=== PATIENT | male | born 1950 | race Caucasian/White ===

== ENCOUNTER 2017-08-04 22:04 | Inpatient (IN) | payer MEDICARE ==
[~2017-08-04] VITALS: Ht 167.6 cm; Wt 56.7 kg
[2017-08-04 22:37] LABS: BASOPHILS 0.2 % (0-2); EOSINOPHILS 0.2 % (0-7); HEMATOCRIT 42.1 % (42.0-54.0); HEMOGLOBIN 14.2 g/dL (13.5-17.5); IMMATURE GRANULOCYTES 0.2 % (0-5); LYMPHOCYTES 13.7 % (15-50); MCH 33.3 pg (26.0-34.0); MCHC 33.7 g/dL (31.0-37.0); MCV 98.8 fL (80.0-100.0); MEAN PLATELET VOLUME 9.5 fL (7.4-10.4); MONOCYTES 9.2 % (2-11); NEUTROPHILS 76.5 % (40-80); PLATELET COUNT 188 10x3/uL (130-400); RBC 4.26 10x6/uL (4.20-6.10); RDW 12.6 % (11.5-14.5); WBC 11.3 10x3/uL (4.8-10.8)
[2017-08-04 22:50] LABS: ALBUMIN 3.7 g/dL (3.4-5.0); ALKALINE PHOSPHATASE 72 U/L (46-116); ALT (SGPT) 27 U/L (10-68); BILIRUBIN - TOTAL 0.27 mg/dL (0.2-1.3); CALC OSMOLALITY 277 mosm/kg (275-300); CALCIUM 8.5 mg/dL (8.5-10.1); CARBON DIOXIDE 31.5 mmol/L (21.0-32.0); CHLORIDE - SERUM 101 mmol/L (98-107); CREATININE - SERUM 0.8 mg/dL (0.6-1.3); GLUCOSE 106 mg/dL (74-106); POTASSIUM - SERUM 3.5 mmol/L (3.5-5.1); PROTEIN - SERUM 6.8 g/dL (6.4-8.2); SODIUM 141 mmol/L (136-145); UREA NITROGEN 5 mg/dL (7-18); eGFR NON AFRICAN AMERICAN > 90 mL/min (90-120)
[2017-08-04 22:53] LABS: APTT 27.6 SECONDS (22.8-39.4); INR 0.93 (0.85-1.17); PROTIME 12.3 SECONDS (11.6-15.0)
[2017-08-04 22:58] LABS: CREATINE KINASE 102 UL (21-232); PRO BNP 201 pg/mL (0-125)
[2017-08-05 03:08] VITALS: BP 124/92; BMI 20.2
[2017-08-05 07:57] VITALS: BP 127/70
[2017-08-05] MEDS ORDERED: RAPAFLO8 MG PO (10:44)
[2017-08-05] MEDS ORDERED: PROTONIX40 MG PO (11:12)
[2017-08-05] MEDS ORDERED: TIMOPTIC 0.5 % O5 ML EACH EYE (11:13)
[2017-08-05] MEDS ORDERED: PRINIVIL20 MG PO (11:14)
[2017-08-05] MEDS ORDERED: SYNTHROID88 MCG PO (11:14)
[2017-08-05] MEDS ORDERED: calcium PO (11:16)
[2017-08-05] MEDS ORDERED: FLINTSTONE1 TAB.CHEW PO (11:17)
[2017-08-05] MEDS ORDERED: MILK THISTLE140 MG PO (11:17)
[2017-08-05] MEDS ORDERED: POTASSIUM99 M1 PO (11:19)
[2017-08-05] MEDS ORDERED: VITAMIN D2000 UNIT PO (11:19)
[2017-08-05 11:20] LABS: BASOPHILS 0.3 % (0-2); EOSINOPHILS 0.5 % (0-7); HEMATOCRIT 40.7 % (42.0-54.0); HEMOGLOBIN 13.6 g/dL (13.5-17.5); IMMATURE GRANULOCYTES 0.2 % (0-5); LYMPHOCYTES 17.2 % (15-50); MCH 33.3 pg (26.0-34.0); MCHC 33.4 g/dL (31.0-37.0); MCV 99.5 fL (80.0-100.0); MONOCYTES 11.9 % (2-11); NEUTROPHILS 69.9 % (40-80); PLATELET COUNT 175 10x3/uL (130-400); RBC 4.09 10x6/uL (4.20-6.10); RDW 12.7 % (11.5-14.5); WBC 9.7 10x3/uL (4.8-10.8)
[2017-08-05] MEDS ORDERED: DURAGESIC1 PATCH .3 TRANSDERM (11:20)
[2017-08-05] MEDS ORDERED: BAYER CHEWABLE81 MG PO (11:20)
[2017-08-05] MEDS ORDERED: OXYCODONE HCL10 MG PO (11:21)
[2017-08-05] MEDS ORDERED: ZYRTEC10 MG PO (11:22)
[2017-08-05] MEDS ORDERED: IMODIUM2 MG PO (11:24)
[2017-08-05 11:34] VITALS: BP 105/53
[2017-08-05] MEDS ORDERED: ALENDRONAT70 MG/75 M PO (13:36)
[2017-08-05 14:43] VITALS: Ht 167.6 cm; Wt 56.7 kg
[2017-08-05 15:55] VITALS: BP 131/66
--- NOTE | 2017-08-05 17:50 | NUR ---
PATIENT IS AWAKE, ALERT AND ORIENTED X'S 4. RESPIRATIONS ARE EVEN AND UNLABORED ON ROOM AIR. NO SIGNS OF DISTRESS NOTED. ASSISTED PATIENT GETTING REPOSITIONED IN BED. HE HIS LAYING ON HIS RIGHT SIDE, WITH PILLOWS BEHIND HIS BACK AND BETWEEN HIS LEGS. SCDS TO BILATERAL LEGS. ASSISTED PATIENT MOVING HIS RIGHT LEG TO GET MORE COMFORTABLE. HE VERBALIZED THAT HE IS NOW COMFORTABLE. HE DENIES OTHER NEEDS. BED IN LOWEST POSITION, CALL LIGHT IN REACH. BED RIALS UP X'S 2.
[2017-08-05 20:00] VITALS: BP 115/54; BP 135/77
--- NOTE | 2017-08-05 20:00 | NUR ---
PT. IN BED LYING ON HIS RIGHT SIDE WITH PILLOWS TO HIS LEFT SIDE FOR SUPPORT. ASSESSMENT COMPLETED. PT. CONTINUES TO REFUSE SCD'S AND ALSO REFUSES THE BED ALARM AND SIGNED THE WAIVER FORM FOR THAT. CALL LIGHT WITHIN REACH.
--- NOTE | 2017-08-05 23:28 | NUR ---
PT. HAS REQUESTED ASSISTANCE NUMEROUS TIMES HE WANTS TO TRY DIFFERENT POSITIONS TO SEE IF HE CAN GET MORE COMFORTABLE AND THEN HE CHANGES HIS MIND AND WANTS TO BE PUT BACK TO WHERE HE WAS. PT. IN BED WITH HOB UP FOR COMFORT AND HAS REQUESTED THAT HIS ROOM LIGHT REMAIN ON AND HIS DOOR KEPT OPEN. CALL LIGHT WITHIN REACH FOR ANY NEEDS.
[2017-08-06] VITALS: BP 149/69
--- NOTE | 2017-08-06 03:20 | NUR ---
PT. IN BED WITH HOB UP FOR COMFORT. EYES CLOSED AND RESP. EVEN. PT. HAD REQUESTED EARLIER TO HAVE HIS SCD'S TURNED OFF TO GIVE HIS LEGS A BREAK AND SINCE THEN PT. HAS BEEN RESTING BETTER. RICHARD TO BSD WITHOUT PROBLEMS, IV INFUSING VIA PUMP WITHOUT ALARMS, AND PT'S CALL LIGHT REMAINS WITHIN REACH.
[2017-08-06 04:00] VITALS: BP 125/71
[2017-08-06 06:02] LABS: BASOPHILS 0.1 % (0-2); HEMATOCRIT 36.4 % (42.0-54.0); HEMOGLOBIN 12.1 g/dL (13.5-17.5); IMMATURE GRANULOCYTES 0.1 % (0-5); LYMPHOCYTES 24.9 % (15-50); MCH 32.9 pg (26.0-34.0); MCHC 33.2 g/dL (31.0-37.0); MCV 98.9 fL (80.0-100.0); MEAN PLATELET VOLUME 10.3 fL (7.4-10.4); MONOCYTES 13.6 % (2-11); NEUTROPHILS 60.3 % (40-80); PLATELET COUNT 175 10x3/uL (130-400); RBC 3.68 10x6/uL (4.20-6.10); RDW 12.7 % (11.5-14.5)
[2017-08-06 06:12] LABS: WBC 6.7 10x3/uL (4.8-10.8)
[2017-08-06 06:28] LABS: ALKALINE PHOSPHATASE 62 U/L (46-116); BILIRUBIN - TOTAL 0.36 mg/dL (0.2-1.3); CALC OSMOLALITY 278 mosm/kg (275-300); CALCIUM 7.7 mg/dL (8.5-10.1); CARBON DIOXIDE 28.8 mmol/L (21.0-32.0); CHLORIDE - SERUM 106 mmol/L (98-107); CREATININE - SERUM 0.9 mg/dL (0.6-1.3); GLUCOSE 93 mg/dL (74-106); POTASSIUM - SERUM 3.6 mmol/L (3.5-5.1); PROTEIN - SERUM 5.5 g/dL (6.4-8.2); SODIUM 141 mmol/L (136-145); UREA NITROGEN 6 mg/dL (7-18); eGFR NON AFRICAN AMERICAN 89 mL/min (90-120)
[2017-08-06 06:31] LABS: ALBUMIN 2.7 g/dL (3.4-5.0); ALT (SGPT) 19 U/L (10-68)
--- NOTE | 2017-08-06 08:00 | NUR ---
PATIENT IS AWAKE AND ALERT AND HE IS TRYING TO EAT BREAKFAST. PATIENT IS TALKATIVE AND LIKES TO TALK ABOUT PHILOSOPHY.
[2017-08-06 09:32] VITALS: BP 123/67
--- NOTE | 2017-08-06 10:34 | NUR ---
PATIENT C/O PAIN TO LEFT HIP, PROVIDED 1 MG DILAUDID IVP, SEE MAR. DID TRY TO ASSIST PATIENT ON THE BED NAIR, HE WAS NOT ABLE TO TOLERATE. OFFERED TO PUT CHUX UNDER HIM AND THEN CLEAN HIM UP. HE SAID HE DID NOT WANT TO, BUT HE WOULD BECAUSE HE IS NOT ABLE TO LIFT HIMSELF AND DOES NOT WANT STAFF TO ASSIST.
[2017-08-06 13:03] VITALS: BP 134/84
--- NOTE | 2017-08-06 15:13 | NUR ---
Patient Name: LIBRADO EMNARD Admission Status: ER Accout number: [id number] Admission Date: 08-05-2017 : 1950 Admission Diagnosis:DISPLACED INTERTROCHANTERIC FRACTURE OF LEFT FEMUR, INI Attending: URI CAMARGO Current LOS: 1 Anticipated DC Date: 08-11-2017 Planned Disposition: Inpatient Rehab Facility Primary Insurance: MEDICARE A & B Discharge Planning Comments: CM MET WITH PATIENT REGARDING D/C NEEDS AND PLANS. PATIENT STATED HE LIVES ALONE AND NEEDS REHAB BEFORE HE GOES HOME. PATIENT STATED HE HAS 3-4 STEPS TO ENTER HOME WITH NO RAILING AND NO STAIRS INSIDE. UPON DISCHARGE PATIENTS FRIEND (BEKAJOHN) WILL DRIVE HIM HOME. PATIENT HAS A SHOWER CHAIR AT HOME AND NO OTHER DME. PATIENTS PCP IS DR. CASTILLO AND PHARMACY IS [facility]. PATIENT HAS REQUESTED IP REHAB. CM WILL CONTINUE TO FOLLOW PATIENT WITH D/C NEEDS AND PLANS. PCP DR. CASTILLO [facility]- [phone] GIOVANNY (FRIEND) [phone] Retail Assistant Store Manager: Lili Pozo Is the patient Alert and Oriented? Yes 0 * How many steps to enter\exit or inside your home? 3 0 * PCP ANNA 0 * Pharmacy [facility] 0 * Preadmission Environment Home Alone 0 * ADLs Independent 0 * Equipment Shower Chair 0 * List name and contact numbers for known caregivers / representatives who currently or will assist patient after discharge: GIOVANNY [phone] (FRIEND) 0 * Community resources currently utilized None 0 * Additional services required to return to the preadmission environment? Yes 0 * Can the patient safely return to the preadmission environment? Yes 0 * Has this patient been hospitalized within the prior 30 days at any hospital? No 0 Grand Total: 0
[2017-08-06 15:34] VITALS: BP 133/69
--- NOTE | 2017-08-06 15:35 | NUR ---
PATIENT IS C/O LEFT HIP PAIN AND DID PROVIDE DILAUDID 1 MG IVP PER ORDER. PATIENT CONTINUES TO WANT TO TALK AND TALK.
--- NOTE | 2017-08-06 16:00 | NUR ---
PATIENT RESTING EASIER.
--- NOTE | 2017-08-06 19:55 | NUR ---
PRN DILAUDID ADMINISTERED AT THIS TIME FOR PAIN IN HIP.
--- NOTE | 2017-08-06 21:45 | NUR ---
PT REFUSED ATIVAN 1MG PO. EXPLAINED WHAT THE MEDICATION WAS USED FOR, PT STATED "I WILL NOT TAKE ANYTHING THAT IS GOING TO SLOW MY HEAD DOWN, THAT SOUNDS LIKE A PYSCH MEDICATION AND I DO NOT TAKE THOSE."
[2017-08-06 23:09] VITALS: BP 122/64
--- NOTE | 2017-08-07 00:21 | NUR ---
PRN DILAUDID ADMINISTERED AT THIS TIME FOR PAIN.
[2017-08-07 05:25] LABS: BASOPHILS 0.3 % (0-2); EOSINOPHILS 1.4 % (0-7); HEMATOCRIT 35.8 % (42.0-54.0); IMMATURE GRANULOCYTES 0.1 % (0-5); LYMPHOCYTES 29.1 % (15-50); MCH 33.1 pg (26.0-34.0); MCHC 33.5 g/dL (31.0-37.0); MCV 98.9 fL (80.0-100.0); MEAN PLATELET VOLUME 10.3 fL (7.4-10.4); MONOCYTES 10.3 % (2-11); NEUTROPHILS 58.8 % (40-80); PLATELET COUNT 163 10x3/uL (130-400); RBC 3.62 10x6/uL (4.20-6.10); RDW 12.5 % (11.5-14.5); WBC 7.7 10x3/uL (4.8-10.8)
[2017-08-07 05:45] LABS: ALBUMIN 2.4 g/dL (3.4-5.0); ALKALINE PHOSPHATASE 53 U/L (46-116); ALT (SGPT) 17 U/L (10-68); CALCIUM 7.6 mg/dL (8.5-10.1); CARBON DIOXIDE 27.4 mmol/L (21.0-32.0); CHLORIDE - SERUM 108 mmol/L (98-107); GLUCOSE 87 mg/dL (74-106); POTASSIUM - SERUM 3.8 mmol/L (3.5-5.1); PROTEIN - SERUM 5.2 g/dL (6.4-8.2); SODIUM 141 mmol/L (136-145)
[2017-08-07 05:48] LABS: CALC OSMOLALITY 276 mosm/kg (275-300); CREATININE - SERUM 0.6 mg/dL (0.6-1.3); UREA NITROGEN 4 mg/dL (7-18); eGFR NON AFRICAN AMERICAN > 90 mL/min (90-120)
--- NOTE | 2017-08-07 08:00 | NUR ---
PT ASSESSMNT COMPLETE C/O PAIN GIVEN PAIN MED PER ORDER.
--- NOTE | 2017-08-07 09:26 | NUR ---
PT ASSESSMENT COMPLETE AND PAIN RATED T 10 IV RESITED TO LEFT INNER FORARM 22 GA DILAUDID GIVEN IV PER ORDER PT NOTED TO HAVE REDNESS TO VEIN AFTER SLOW IVP NO ITCHING OR BURNING NOTED WILL MONITOR. DILAUDID WAS DILUTED 5:1 AND GIVEN SLOW PUSH
[2017-08-07 09:42] VITALS: BP 150/72
--- NOTE | 2017-08-07 10:05 | NUR ---
Rehab Note- Acute Rehab Prescreen order received. The patient is scheduled for srgery today. Will follow at this time. Thank you for this referral! Harriett Sequeira RN Clinical Liaison, [facility] Rehab
[2017-08-07 13:05] VITALS: BP 118/58
--- NOTE | 2017-08-07 14:07 | NUR ---
NUTRITION F/U PT CURRENTLY NPO FOR PROCEDURE. WILL HONOR FOOD PREFERENCES WHEN DIET RESUMES. MONITOR PO INTAKE. RD FOLLOWING
[2017-08-07 16:56] VITALS: BP 108/86
[2017-08-07 21:20] VITALS: BP 150/82
--- NOTE | 2017-08-08 03:13 | NUR ---
ASSESSED AT THE BEGINNING OF THE SHIFT. PT IS ALERT AND ORIENTED, ABLE TO VERBALIZE NEEDS. HE HAS LEFT HIP DRESSINGS IN PLACE AND SECURE. HE ALSO HAS A MIDLINE ABD HERNIA. WE HAVE MEPELIX TO HIS COCCYX WHICH IS RED. HE IS USING A URINAL AND WE ARE ASSISTING HIM WITH TURNING AND REPOSITIONING FOR COMFORT AND SKIN CAR. HE IS VERY PICKY ABOUT HOW HE LAYS AND IT TAKES QUIET A WHILE TO GET HIM WHERE HE WANTS TO BE POSITIONED. THERE IS A REPAIR TECHNICIAN FOR PAIN CONTROL AND HE FINALLY TOOK HIS ATIVAN TO HELP HIM REST. HE KEEPS ASKING FOR O2 BUT HIS SATES ARE GOOD AND HIS REASONING IS THAT HE MIGHT CHOKE TO ON HIS PHLEGM DURING HIS SLEEP. THE BED IS LOW, RAILS UP X'S 2 WITH THE CALL LIGHT AT HAND.
[2017-08-08 05:00] VITALS: BP 158/95
[2017-08-08 06:31] LABS: BASOPHILS 0.1 % (0-2); EOSINOPHILS 0.1 % (0-7); HEMATOCRIT 35.1 % (42.0-54.0); HEMOGLOBIN 11.8 g/dL (13.5-17.5); IMMATURE GRANULOCYTES 0.2 % (0-5); LYMPHOCYTES 14.6 % (15-50); MCH 32.8 pg (26.0-34.0); MCHC 33.6 g/dL (31.0-37.0); MCV 97.5 fL (80.0-100.0); MEAN PLATELET VOLUME 10.4 fL (7.4-10.4); MONOCYTES 10.6 % (2-11); NEUTROPHILS 74.4 % (40-80); PLATELET COUNT 177 10x3/uL (130-400); RDW 12.3 % (11.5-14.5)
[2017-08-08 06:41] LABS: WBC 10.6 10x3/uL (4.8-10.8)
[2017-08-08 06:53] LABS: ALBUMIN 2.4 g/dL (3.4-5.0); ALKALINE PHOSPHATASE 55 U/L (46-116); ALT (SGPT) 17 U/L (10-68); CALC OSMOLALITY 275 mosm/kg (275-300); CALCIUM 7.5 mg/dL (8.5-10.1); CARBON DIOXIDE 24.1 mmol/L (21.0-32.0); CHLORIDE - SERUM 107 mmol/L (98-107); CREATININE - SERUM 0.6 mg/dL (0.6-1.3); GLUCOSE 105 mg/dL (74-106); POTASSIUM - SERUM 3.8 mmol/L (3.5-5.1); PROTEIN - SERUM 5.6 g/dL (6.4-8.2); SODIUM 139 mmol/L (136-145); UREA NITROGEN 6 mg/dL (7-18); eGFR NON AFRICAN AMERICAN > 90 mL/min (90-120)
--- NOTE | 2017-08-08 07:58 | NUR ---
PT AOX4 RESP EVEN AND NONLABORED PT DENIES NEEDS AT THIS TIME IV TO RIGHT FOREARM PATENT AND INTACT AT THIS TIME SRX2 BED AT LOWEST SETTING CALL LIGHT WITHIN REACH WILL CONTINUE TO MONITOR
[2017-08-08 08:36] VITALS: BP 166/94
[2017-08-08 12:14] VITALS: BP 146/80
[2017-08-08 15:56] VITALS: BP 130/71
[2017-08-08 20:00] VITALS: BP 137/78
--- NOTE | 2017-08-09 03:03 | NUR ---
ASSESSED, AT THE BEGINNING OF THE SHIFT. PT IS ALERT AND ORIENTED, ABLE TO VERBALIZE NEEDS. HE IS ABLE TO TURN AND REPOSITION IN BED WITH MININAL ASSIST. THE DRESSING TO HIS LEFT HIP ARE ALL DRY AND INTACT. HE HAS A RICHARD CATH IN PLACE AND WE HAVE MEPIRLEX TO HIS COCCYX FOR PROTECTION.HE HAS A MULTIMEDIA DEVELOPER FOR PAIN CONTROL WHICH SEEMS TO BE KEEPING HIM COMFORTABLE. THERE IS A MIDLINE HERNIA TO HIS ABD WHICH HE STATES HAS BEEN THERE A LONG TIME. THE BED IS LOW, RAILS UP X'S 2 WITH THE CALL LIGHT AT HAND.
[2017-08-09 04:00] VITALS: BP 171/90
[2017-08-09 06:55] LABS: BASOPHILS 0.2 % (0-2); EOSINOPHILS 1.7 % (0-7); HEMATOCRIT 32.8 % (42.0-54.0); HEMOGLOBIN 11.1 g/dL (13.5-17.5); LYMPHOCYTES 22.7 % (15-50); MCH 33.1 pg (26.0-34.0); MCHC 33.8 g/dL (31.0-37.0); MCV 97.9 fL (80.0-100.0); MEAN PLATELET VOLUME 9.8 fL (7.4-10.4); MONOCYTES 12.4 % (2-11); PLATELET COUNT 175 10x3/uL (130-400); RBC 3.35 10x6/uL (4.20-6.10); RDW 12.4 % (11.5-14.5); WBC 8.4 10x3/uL (4.8-10.8)
--- NOTE | 2017-08-09 07:05 | NUR ---
PT REC'D FROM [facility]. RESTING IN BED EATING BREAKFAST. AAOX4. RATING CURRENT PAIN IN L HIP 05/01. DILAUDID MANAGER MANAGING COMPLETE. CHANNEL TURNED OFF. EXPLAINED TO PT THAT HE WOULD BE RECEIVING ORAL PAIN MEDS TODAY INSTEAD. PT STATED HE WAS OKAY WITH THIS. TOLD PT WE NEEDED TO TAKE HIS RICHARD OUT WELL. PT STATED, "ABSOLUTELY NOT. IF I DON'T HAVE THIS THING IN I CAN'T PEE. I HAVE TO TAKE MY RAPAFLO IN ORDER TO URINATE. ONCE I GET THAT YOU CAN TAKE IT OUT." TOLD HIM THIS WAS FINE, BUT I WOULD HAVE TO SPEAK TO THE DOCTOR ABOUT IT. HE STATED, "I'VE TALKED TO EVERYONE THAT HAS COME IN THIS ROOM ABOUT IT. MY FRIENDS ARE BRINGING IT TO ME." WILL NOTIFY CRISTINA ABOUT THIS. X3 DRESSINGS TO L HIP. TOP DRESSING WITH MODERATE AMOUNT OF DRAINAGE, SECOND DRESSING CLEAN, AND THIRD DRESSING WITH DIME SIZE DOT OF DRAINAGE. WILL CHANGE ALL BANDAGES. +2 PEDAL PULSES BILAT. ICE APPLIED TO L ANKLE PER PT REQUEST. BED LOW, CALL LIGHT IN REACH, DENIES NEEDS. CPOC.
[2017-08-09 07:28] LABS: ALBUMIN 2.3 g/dL (3.4-5.0); ALKALINE PHOSPHATASE 47 U/L (46-116); ALT (SGPT) 15 U/L (10-68); BILIRUBIN - TOTAL 0.45 mg/dL (0.2-1.3); CALC OSMOLALITY 278 mosm/kg (275-300); CARBON DIOXIDE 27.1 mmol/L (21.0-32.0); CHLORIDE - SERUM 108 mmol/L (98-107); CREATININE - SERUM 0.6 mg/dL (0.6-1.3); GLUCOSE 87 mg/dL (74-106); POTASSIUM - SERUM 4.1 mmol/L (3.5-5.1); PROTEIN - SERUM 5.5 g/dL (6.4-8.2); SODIUM 142 mmol/L (136-145); UREA NITROGEN 5 mg/dL (7-18); eGFR NON AFRICAN AMERICAN > 90 mL/min (90-120)
--- NOTE | 2017-08-09 09:30 | NUR ---
MORNING MEDS PASSED AT THIS TIME. PRN PAIN PILL ADMINISTERED AT THIS TIME. CURRENT PAIN IN L HIP 05/01. WILL REASSESS. BED LOW, CALL LIGHT IN REACH, DENIES NEEDS. CPOC.
[2017-08-09 10:10] VITALS: BP 144/82
[2017-08-09 13:39] VITALS: BP 127/68
[2017-08-09 16:51] VITALS: BP 132/80
--- NOTE | 2017-08-09 18:15 | NUR ---
PT RESTING IN BED WITH EYES CLOSED. NO SIGNS OF DISCOMFORT. RESP EVEN AND UNLABORED. BED LOW, CALL LIGHT IN REACH, CPOC.
--- NOTE | 2017-08-09 19:23 | NUR ---
LATE ENTRY 1500 TC TO [facility] CLINT, REHAB SCREENER, AFTER REVIEWING NOTE. SHE WILL REVIEW PATIENT'S PROGRESS. POSSIBLE DISCHARGE TO [facility] REHAB ON FRIDAY. CM TO FOLLOW.
--- NOTE | 2017-08-09 19:50 | NUR ---
PATIENT RESTING IN BED WITH NO VISIBLE SIGNS OF DISTRESS. ASSESSMENT COMPLETE. ADMINISTERED MEDS PER ORDERS. PATIENT REFUSED COLACE AND 2200 ATIVAN. BED IN LOWEST POSITION AND CALL LIGHT WITHIN REACH. ENCOURAGED THE PATIENT TO CALL IF HE HAS NEEDS.
[2017-08-09 20:00] VITALS: BP 124/67
[2017-08-10] VITALS: BP 147/76
[2017-08-10 04:00] VITALS: BP 125/75
[2017-08-10 06:54] LABS: BASOPHILS 0.5 % (0-2); EOSINOPHILS 3.7 % (0-7); HEMATOCRIT 30.6 % (42.0-54.0); HEMOGLOBIN 10.3 g/dL (13.5-17.5); IMMATURE GRANULOCYTES 0.2 % (0-5); LYMPHOCYTES 31.4 % (15-50); MCH 32.7 pg (26.0-34.0); MCHC 33.7 g/dL (31.0-37.0); MCV 97.1 fL (80.0-100.0); MEAN PLATELET VOLUME 9.3 fL (7.4-10.4); MONOCYTES 9.9 % (2-11); NEUTROPHILS 54.3 % (40-80); PLATELET COUNT 147 10x3/uL (130-400); RBC 3.15 10x6/uL (4.20-6.10); RDW 12.3 % (11.5-14.5)
[2017-08-10 07:00] LABS: WBC 6.2 10x3/uL (4.8-10.8)
[2017-08-10 07:11] LABS: ALKALINE PHOSPHATASE 44 U/L (46-116); ALT (SGPT) 12 U/L (10-68); BILIRUBIN - TOTAL 0.27 mg/dL (0.2-1.3); CALC OSMOLALITY 278 mosm/kg (275-300); CALCIUM 7.8 mg/dL (8.5-10.1); CARBON DIOXIDE 25.5 mmol/L (21.0-32.0); CHLORIDE - SERUM 110 mmol/L (98-107); CREATININE - SERUM 0.5 mg/dL (0.6-1.3); GLUCOSE 79 mg/dL (74-106); POTASSIUM - SERUM 3.6 mmol/L (3.5-5.1); PROTEIN - SERUM 4.9 g/dL (6.4-8.2); SODIUM 142 mmol/L (136-145); UREA NITROGEN 5 mg/dL (7-18); eGFR NON AFRICAN AMERICAN > 90 mL/min (90-120)
--- NOTE | 2017-08-10 07:58 | NUR ---
PT UP IN BED INQUIRED ON PAIN MEDICATION, ADVISED PT NOT ABLE TO HAVE UNTIL 0830, REFUSES STILL TO HAVE RICHARD TAKEN OUT. PT REFUSED STOOL SOFTENER, WILL REMOVE FROM EMAR. CONTINUE WITH PT CARE
[2017-08-10 08:31] VITALS: BP 156/85
[2017-08-10 11:47] VITALS: BP 111/75
--- NOTE | 2017-08-10 13:34 | NUR ---
1330 CM SPOKE WITH CLINT THE SCREENER FRIDAY. SHE WILL BE WORKING ON THE PATIENT' SCREEN FOR ADMISSION TO ACUTE REHAB TODAY. NO CALL OR DOCUMENTATION AT THIS TIME. MD'S EXPECTING TRANSFER TODAY.
--- NOTE | 2017-08-10 14:00 | NUR ---
PATIENT IV RESTARTED IN RIGHT FA DUE TO OTHER IV RED AND HURTING. PATIENT TOLERATED SMALL AMOUNT OF PAIN. X 1 STICK 22 G. CALL LIGHT WITHIN REACH.
[2017-08-10] MEDS ORDERED: NICODERM C1 PATCH .3 TRANSDERM (15:07)
[2017-08-10] MEDS ORDERED: ATIVAN1 MG PO (15:08)
[2017-08-10] MEDS ORDERED: ASPIRIN81 MG PO (15:08)
[2017-08-10] MEDS ORDERED: NALOXONE HC0.4 MG/M2 IV (15:09)
[2017-08-10] MEDS ORDERED: MUCINEX600 MG PO (15:09)
--- NOTE | 2017-08-10 15:47 | NUR ---
CLINT THE REHAB SCREENER. CALLED WITH ROOM ASSIGNMENT FOR [facility] ACUTE REHAB. PATIENT ACCEPTED FOR TRANSFER TODAY. JUAN MIGUEL LEFT NOTE FOR PRIMARY NURSE, SAMANTHA.
--- NOTE | 2017-08-10 16:56 | NUR ---
PT IS BEING TRANSFERRED TO IN REHAB, REQUESTED TO HAVE PAIN MEDICATION AND DINNER PRIOR TO BEING TRANSFERRED
--- NOTE | 2017-10-16 19:08 | OP ---
PATIENT NAME: LIBRADO MENARD MEDICAL RECORD: [id number] :50 LOCATION:[id number] ADMISSION DATE:08/05/17 SURGEON: LIBRADO CAZARES MD DATE OF OPERATION: 08/07/2017 PREOPERATIVE DIAGNOSIS: Intertrochanteric hip fracture to the left hip. POSTOPERATIVE DIAGNOSIS: Intertrochanteric hip fracture to the left hip. PROCEDURE: Left hip gamma nail, cephalomedullary fixation for intertrochanteric hip fracture. SURGEON: Librado Cazares MD ANESTHESIA: General. INTRAOPERATIVE COMPLICATIONS: None. SUMMARY OF PATHOLOGIC FINDINGS: The patient had a displaced intratrochanteric hip fracture consistent with preoperative diagnosis and radiographs. OPERATIVE SUMMARY IN DETAIL: After obtaining the appropriate preoperative orthopedic surgery consent as well as anesthetic consultation, evaluation and clearance, the patient was brought to the operating room and in the operating room was given general anesthesia on his bed. He was then moved on to the fracture table. The left leg was placed in the traction boot and right leg was placed in the well leg aly. He was secured firmly to the operating table using the belt and sheathing system. Under fluoroscopic visualization, the hip was repaired on AP and lateral planes. The left hip was then prepped and draped in routine sterile fashion. Incision was made at the tip of the greater trochanter. An awl was placed to create a guide hole for the ball-tipped guidewire. The ball-tipped guidewire was then placed. Proximal reaming was then followed by insertion of the gamma nail to the appropriate position as seen on AP and lateral planes. A guide pin was then placed into the center-center of the femoral head. Appropriate reaming was then followed by insertion of the compression screw. Compression was then undertaken followed by placement of the derotational screw to the appropriate position to allow for compression, but not rotation. Distal intramedullary locking guide was used to finish distal intramedullary locking. Having completed this, final radiographs were taken and submitted for radiologist review. Wounds were copiously irrigated and closed in the usual fashion. The patient was awakened, taken to recovery room in stable condition. All final needle and sponge counts were correct. TRANSINT:[id number] Voice Confirmation ID: [id number] DOCUMENT ID: [id number] LIBRADO CAZARES MD at 1908 CC: [id number] DICTATION DATE: 10/16/17 1331 FRONT END APPLICATION DEVELOPER: 10/16/17 1404 DIS IN 08/10/17 [facility] [address] [id number]
== END 2017-08-10 17:40 | DRG 481 ==
LOC: D.ER 22:04 → D.MS 08-05 01:45
PROVIDERS: Family Medicine; Orthopaedic Surgery; ADMIT Emergency Medicine
PROC: 0QH836Z Insertion of Intramedullary Internal Fixation Device into Right Femoral Shaft, Percutaneous Approach (ICD-10-PCS; principal; 2017-08-07 12:15)
DX: S72.142A Displaced intertrochanteric fracture of left femur, initial encounter for closed fracture (principal); F17.203 Nicotine dependence unspecified, with withdrawal; D62 Acute posthemorrhagic anemia; E44.0 Moderate protein-calorie malnutrition; W01.0XXA Fall on same level from slipping, tripping and stumbling without subsequent striking against object, initial encounter; Z68.20 Body mass index [BMI] 20.0-20.9, adult

== ENCOUNTER 2017-08-10 17:40 | Inpatient (IN) | payer MEDICARE ==
[~2017-08-10] VITALS: Ht 167.6 cm; Wt 56.7 kg
[~2017-08-10 17:40] MED LIST: ALENDRONAT70 MG/75 M PO; ASPIRIN81 MG PO; ATIVAN1 MG PO; BAYER CHEWABLE81 MG PO; DURAGESIC1 PATCH .3 TRANSDERM; FLINTSTONE1 TAB.CHEW PO; IMODIUM2 MG PO; MILK THISTLE140 MG PO; MUCINEX600 MG PO; NALOXONE HC0.4 MG/M2 IV; NICODERM C1 PATCH .3 TRANSDERM; OXYCODONE HCL10 MG PO; POTASSIUM99 M1 PO; PRINIVIL20 MG PO; PROTONIX40 MG PO; RAPAFLO8 MG PO; SYNTHROID88 MCG PO; TIMOPTIC 0.5 % O5 ML EACH EYE; VITAMIN D2000 UNIT PO; ZYRTEC10 MG PO; calcium PO
--- NOTE | 2017-08-10 18:25 | NUR ---
RECIEVED TO [address]ORIENTED TO ROOM AND CL.
[2017-08-10 23:07] VITALS: BP 151/95; BMI 20.2
--- NOTE | 2017-08-10 23:32 | NUR ---
ADMISSION COMPLETED. PT. REQUESTING BSC AND ONE WILL BE PLACED SOON IT IS AVAILABLE.
--- NOTE | 2017-08-11 00:10 | NUR ---
PT. WANTED TO WAIT UNTIL NOW TO TAKE HIS ATIVAN AND ONLY WANTED 1/2 TABLET OF THE 1MG.
--- NOTE | 2017-08-11 03:20 | NUR ---
PT. IN BED LYING ON HIS RIGHT SIDE WITH HOB UP FOR COMFORT. EYES CLOSED AND RESP. EVEN. RICHARD TO BSD WITHOUT PROBLEMS. CALL LIGHT WITHIN REACH.
[2017-08-11 06:03] LABS: BASOPHILS 0.5 % (0-2); EOSINOPHILS 3.2 % (0-7); HEMOGLOBIN 9.5 g/dL (13.5-17.5); IMMATURE GRANULOCYTES 0.2 % (0-5); LYMPHOCYTES 34.1 % (15-50); MCH 32.1 pg (26.0-34.0); MCHC 32.8 g/dL (31.0-37.0); MEAN PLATELET VOLUME 10.1 fL (7.4-10.4); MONOCYTES 9.1 % (2-11); NEUTROPHILS 52.9 % (40-80); RBC 2.96 10x6/uL (4.20-6.10); RDW 12.3 % (11.5-14.5); WBC 6.2 10x3/uL (4.8-10.8)
[2017-08-11 06:21] LABS: PLATELET COUNT 194 10x3/uL (130-400)
[2017-08-11 06:23] LABS: CALC OSMOLALITY 278 mosm/kg (275-300); CARBON DIOXIDE 26.5 mmol/L (21.0-32.0); CHLORIDE - SERUM 109 mmol/L (98-107); CREATININE - SERUM 0.6 mg/dL (0.6-1.3); GLUCOSE 94 mg/dL (74-106); POTASSIUM - SERUM 3.6 mmol/L (3.5-5.1); SODIUM 141 mmol/L (136-145); eGFR NON AFRICAN AMERICAN > 90 mL/min (90-120)
[2017-08-11 06:31] LABS: UREA NITROGEN 7 mg/dL (7-18)
[2017-08-11 09:12] VITALS: Ht 167.6 cm; Wt 56.7 kg
[2017-08-11 09:28] VITALS: BP 134/84
--- NOTE | 2017-08-11 09:46 | NUR ---
PATIENT ADMITTED TO REHAB FROM ACUTE FLOOR. DR. CASTILLO IS PATIENT PCP. DME AT HOME: SHOWER CHAIR. PATIENT FRIEND GIOVANNY WILL ASSIST PATIENT AT DISCHRGE. WILL CONTINUE TO FOLLOW WITH PATIENT
--- NOTE | 2017-08-11 10:35 | NUR ---
SITTING UP IN BED WATCHING TV. VERY DEMANDING AND IS INSISTING ON TAKING OWN HOME MED WITH OUT CONSULTING DR BOLAÑOS. INFORMED PT HE CAN NOT TAKE HIS OWN MEDICATION WITH OUT AN ORDER FROM DR BOLAÑOS WHILE HE IS IN REHAB. PT IS VERY ARGUMENTATIVE AND DEMANDING.
--- NOTE | 2017-08-11 12:07 | RHP ---
PATIENT: LIBRADO MENARD MEDICAL RECORD: [id number] ACCOUNT: [id number] LOCATION:[place] [id number] : 50 ADMISSION DATE: 08/10/17 REHABILITATION HISTORY AND PHYSICAL EXAMINATION POST ADMISSION PHYSICIAN EXAMINATION ADMITTING DIAGNOSES: Intertrochanteric fracture of the left hip status post left hip gamma nail placement. HISTORY OF PRESENT ILLNESS: This patient is a 67-year-old gentleman who presents to the inpatient rehab for orthopedic reasons with an intertrochanteric fracture of his left hip. He apparently was admitted to acute hospitalist with left hip pain status post fall after slipping in home, he said he had a bad hip, he was found to have an intertrochanteric fracture, underwent a gamma nail placement on 08/07/2017. He has had some postop pain, acute blood loss anemia and malnutrition. He has been receiving multivitamins daily during his acute hospital stay. He has got a Farias catheter during his acute stay and is awaiting for his home medication for urinary problems prior to being discontinued. He has progressing slowly with physical therapy. He has independent with ADLs and mobility prior to this incident. He is currently set up for max assist with his ADLs and [id number] assist for mobility. He lives at home alone and would like to return back to his prior level of functioning. COMORBIDITIES: Include acute postop blood loss anemia, acute hip pain, nicotine dependence, intertrochanteric hip fracture, diffuse osteopenia, degenerative joint disease and malnutrition. PAST MEDICAL HISTORY: Significant for urinary problems and left hip problems. PAST SURGICAL HISTORY: None. ALLERGIES: No known drug allergies. CURRENT MEDICATIONS: Include Imodium as needed. He is on potassium gluconate 99 mg daily, multivitamin daily. He is on Erlinda 60 mg b.i.d., Protonix 40 mg daily, Nicoderm patch 21 mg daily, lisinopril 20 mg daily, Synthroid 88 mcg daily, vitamin D daily, aspirin chewable 81 mg daily, polyethylene glycol 17 grams in 8 ounce of water daily, Percocet 10/325 one tab q.4 hours p.r.n., Ativan 1 mg q.8 hours as needed, Mucinex 600 mg b.i.d., and a Duragesic patch 100 mcg every 3 days. HABITS: Does have a history of tobacco use. FAMILY HISTORY: Noncontributory. SOCIAL HISTORY: The patient hopes to return back home and get back to his prior level of functioning. REVIEW OF SYSTEMS: GENERAL: Does complain of weakness. HEENT: He denies cold, cough, or congestion. CARDIOVASCULAR: Denies chest pain. PHYSICAL EXAMINATION: HISTORY AND PHYSICAL [id number] LIBRADO MENARD VITAL SIGNS: Stable, afebrile. GENERAL: An elderly gentleman, who is quite thin on appearance. HEENT: Normocephalic and atraumatic. Mucosa moist. NECK: Supple. No lymphadenopathy. LUNGS: Clear at this time. HEART: Regular rate and rhythm. ABDOMEN: Benign. EXTREMITIES: No clubbing, cyanosis or edema. His postop swelling appears normal. NEUROLOGIC: Seems intact. LABORATORY DATA: His white count 6.2, H&H 9.5 and 29.0, and platelet count was noted to be 194. Sodium 141, potassium 3.6, BUN and creatinine of 7 and 0.6 and blood sugar is noted to be 94. ASSESSMENT: This is a 67-year-old gentleman admitted to the rehab with a working diagnosis of left hip fracture, status post gamma nail placement. The patient has potential to make improvement. We instituted the following multidisciplinary therapies including to, but not limited to physical, occupational, respiratory, speech, nutritional services, prosthetics and orthotics. Given his complex condition and risk for more complications, rehabilitation services cannot be provided at a low level of care such as a [facility] facility. PLAN: 1. Admit to [facility] rehab for intensive inpatient therapy to include the following disciplines: A. Physical therapy to improve gait, all transfer skills and bed mobility to a modified independent level. B. Occupational therapy to improve activities of daily living to a modified independent level. C. Case management to assist with discharge planning and placement options. D. Nutrition to assist with nutritional needs. E. Rehabilitation nursing to assist in monitoring underlying medical conditions and to assist with any type of bowel or bladder management. 2. The patient's current medications and medical care will be continued. 3. The patient will be placed on standard fall precautions. 4. The patient's estimated length of stay is approximately 7-10 days. 5. Discuss this patient during care team staff meeting this week. TRANSINT:[id number] Voice Confirmation ID: [id number] DOCUMENT ID: [id number] JACLYN notes whether there has been none or any medical/functional change since admission: - No change since pre-admission screen. JACLYN attests patient continues to be appropriate for IRF: - Continues to be appropriate. HISTORY AND PHYSICAL [id number] LIBRADO MENARD SCOTT MD at 1207 CC: [id number] DICTATION DATE: 08/11/17829 [facility] DIRECTOR: 08/11/17 1018 ADM IN [place] [id number] [place] [id number]
--- NOTE | 2017-08-11 12:20 | NUR ---
SITTING UP IN BED EATING LUNCH. FRIENDS IN ROOM VISITING WITH PT.
--- NOTE | 2017-08-11 18:39 | NUR ---
F/C D/C PER DR BOLAÑOS ORDERS AND PT REQUEST. HE STARTED HIS OWN BPH MEDICATION AND REQUESTED RICHARD DC. HAS VOIDED X4 SINCE REMOVED THIS AFTERNOON.
--- NOTE | 2017-08-11 19:28 | NUR ---
PT USING BSC. PT REFUSING TO USE URINAL. LEFT HIP X3 INCISION. NON WEIGHT BEARING ON LEFT LEG. PT STATED TO ME THAT THIS WAS HIS SECOND TIME TO BREAK THIS HIP. PT IS CONTINENT BUT IS URINATING FREQUENTLY. NO O2. RIGHT FA SL. PT STATED TO ME HIS PAIN LEVEL IS A 10/10 AND THAT HE IS WANTING HIS PAIN PILL. ILIA ASSISTED PT BACK TO BED WHILE I WENT TO PULL HIS MEDICATION.
--- NOTE | 2017-08-11 19:38 | NUR ---
PT STATED TO ME, "I WANT TO WAIT TO TAKE THAT ATIVAN UNTIL SLEEPY TIME. YOU CAN CUT IT IN HALF AND LEAVE IT RIGHT HERE.(TALKING ABOUT BEDSIDE TABLE)" I STATED TO PT, "THAT IS FINE JUST LET ME KNOW WHEN YOU ARE READY TO TAKE IT AND I'LL COME GIVE IT TO YOU." I LEFT UNOPENED PILL PACKAGE OF ATIVAN IN MY MED. CART.
--- NOTE | 2017-08-11 22:36 | NUR ---
PT STATED "IM NOT GOING TO TAKE THAT ATIVAN BECAUSE I DON'T WANT TO FALL IN A DEEP SLEEP AND PEE ALL OVER MYSELF."
--- NOTE | 2017-08-11 22:50 | NUR ---
PATIENT UP TO BSC AT THIS TIME.
[2017-08-11 22:57] VITALS: BP 151/68
--- NOTE | 2017-08-12 02:50 | NUR ---
PT IN BED WITH HOB UP FOR COMFORT. EYES CLOSED. CHEST RISING AND FALLING. BED IN LOWEST POSITION AND CALL LIGHT WITHIN REACH. CHIDI ALARM ON.
--- NOTE | 2017-08-12 04:32 | NUR ---
PT HAS USED BSC TO URINATE EVERY HOUR. PT STATED "IM PEEING SO MUCH BECAUSE THEY TOOK OUT MY RICHARD AND IM JUST USED TO CONSTANTLY PEEING."
--- NOTE | 2017-08-12 07:30 | NUR ---
PT AM MEDS ADMINISTERED. PT REQ AND REC'D PRN PAIN MEDICATION AT THIS TIME. WCTM.
[2017-08-12 09:54] VITALS: BP 153/70
--- NOTE | 2017-08-12 11:30 | NUR ---
PT REQ AND REC'D PRN PAIN MEDICATION AT THIS TIME. WCTM.
--- NOTE | 2017-08-12 13:17 | NUR ---
PT LEFT INNER THIGH HAS DEVELOPED DEEP PURPLE BRUISING. DR BOLAÑOS NOTIFIED.
--- NOTE | 2017-08-12 15:43 | NUR ---
PT REQ AND REC'D PRN PAIN MEDICATION. WCTM.
--- NOTE | 2017-08-12 18:21 | NUR ---
PT RESTING IN BED, DENIES NEEDS. WCTM.
[2017-08-12 20:00] VITALS: BP 157/61
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
--- NOTE | 2017-08-12 22:07 | NUR ---
PT REFUSES TO HAVE BED ALARM ON BED. BAW SIGNED.
--- NOTE | 2017-08-13 00:01 | NUR ---
PT RESTING IN BED WATCHING TV. NO ACUTE DISTRESS NOTED.
--- NOTE | 2017-08-13 03:15 | NUR ---
PT UP TO BSC TO URINATE. URINATING FREQUENTLY.
[2017-08-13 06:11] LABS: BASOPHILS 0.5 % (0-2); EOSINOPHILS 2.7 % (0-7); HEMOGLOBIN 11.5 g/dL (13.5-17.5); IMMATURE GRANULOCYTES 0.1 % (0-5); LYMPHOCYTES 25.5 % (15-50); MCH 32.3 pg (26.0-34.0); MCHC 32.9 g/dL (31.0-37.0); MCV 98.3 fL (80.0-100.0); MEAN PLATELET VOLUME 9.4 fL (7.4-10.4); MONOCYTES 9.6 % (2-11); NEUTROPHILS 61.6 % (40-80); RBC 3.56 10x6/uL (4.20-6.10); RDW 12.4 % (11.5-14.5); WBC 8.4 10x3/uL (4.8-10.8)
[2017-08-13 06:19] LABS: PLATELET COUNT 296 10x3/uL (130-400)
[2017-08-13 06:33] LABS: CALC OSMOLALITY 277 mosm/kg (275-300); CALCIUM 8.6 mg/dL (8.5-10.1); CARBON DIOXIDE 30.7 mmol/L (21.0-32.0); CHLORIDE - SERUM 103 mmol/L (98-107); CREATININE - SERUM 0.6 mg/dL (0.6-1.3); GLUCOSE 73 mg/dL (74-106); POTASSIUM - SERUM 3.7 mmol/L (3.5-5.1); SODIUM 141 mmol/L (136-145); UREA NITROGEN 6 mg/dL (7-18); eGFR NON AFRICAN AMERICAN > 90 mL/min (90-120)
--- NOTE | 2017-08-13 08:00 | NUR ---
SHIFT ASSMT COMPLETED.LEFT HIP INCISION C/D/I.LEFT INNER THIGH BRUISED.CL IN REACH.
[2017-08-13 08:20] VITALS: BP 173/78
--- NOTE | 2017-08-13 13:32 | NUR ---
Nutrition Follow Up: Pt is eating 84% meal avg on a regular diet. +BM 08/13/17. Labs reviewed. Meds noted including MV. Rec continue current diet. RD following.
--- NOTE | 2017-08-13 16:26 | NUR ---
CARE TEAM MEETING: PATIENT PROGRESSING IN THERAPY. TENATIVE DISCHARGE DATE IS 08/22/17. WILL CONTINUE TO FOLLOW WITH PATIENT.
--- NOTE | 2017-08-13 20:00 | NUR ---
PT. IN BED WITH HOB UP FOR COMFORT AND IS WATCHING TV. ASSESSMENT COMPLETED. PT. REQUESTING HIS PAIN MEDS AROUND THE CLOCK TO KEEP HIS PAIN LEVEL CONTROLABLE. PT. TRANSFERES BACK AND FORTH TO [facility] WITHOUT ASSISTANCE AND HAS SIGNED A BED ALARM WAIVER FORM. CALL LIGHT WITHIN REACH.
[2017-08-13 20:15] VITALS: BP 139/72
--- NOTE | 2017-08-13 23:48 | NUR ---
PT. IN BED WITH HOB UP FOR COMFORT WITH EYES CLOSED AND RESP. EVEN. CALL LIGHT WITHIN REACH.
--- NOTE | 2017-08-14 03:28 | NUR ---
PT. IN BED WITH HOB UP FOR COMFORT WITH EYES CLOSED AND RESP, EVEN. CALL LIGHT WITHIN REACH.
--- NOTE | 2017-08-14 08:00 | NUR ---
SHIFT ASSMT COMPLETED.CL IN REACH.
[2017-08-14 08:27] VITALS: BP 133/68
--- NOTE | 2017-08-14 12:00 | NUR ---
EATING LUNCH.CL IN REACH.
--- NOTE | 2017-08-14 19:30 | NUR ---
PT. IN BED WITH HOB UP FOR COMFORT AND IS LYING ON HIS RIGHT SIDE. ICE PACK TO LEFT HIP FOR COMFORT. ASSESSMENT COMPLETED. NO VOICED NEEDS A THIS TIME. PT. HASN'T YET DECIDED ON HIS SHOWER TONIGHT OR NOT. CALL LIGHT WITHIN REACH.
[2017-08-14 21:14] VITALS: BP 132/78
--- NOTE | 2017-08-14 23:08 | NUR ---
PT. IN BED WITH HOB UP FOR COMFORT WITH MULTIPLE PILLOWS ALL AROUND HIM. PT. WATCHING TV AND HAS NO VOICED NEEDS AT THIS TIME. CALL LIGHT WITHIN REACH.
--- NOTE | 2017-08-15 03:08 | NUR ---
PT. IN BED WITH HOB UP FOR COMFORT AND IS STILL WATCHING TV. NO VOICED NEEDS AT THIS TIME AND HIS CALL LIGHT IS WITHIN REACH.
[2017-08-15 07:06] LABS: BASOPHILS 0.2 % (0-2); EOSINOPHILS 2.2 % (0-7); HEMATOCRIT 31.2 % (42.0-54.0); HEMOGLOBIN 10.3 g/dL (13.5-17.5); IMMATURE GRANULOCYTES 0.2 % (0-5); LYMPHOCYTES 18.2 % (15-50); MCH 32.2 pg (26.0-34.0); MCV 97.5 fL (80.0-100.0); MEAN PLATELET VOLUME 9.4 fL (7.4-10.4); MONOCYTES 5.9 % (2-11); NEUTROPHILS 73.3 % (40-80); PLATELET COUNT 311 10x3/uL (130-400); RDW 12.7 % (11.5-14.5); WBC 8.6 10x3/uL (4.8-10.8)
[2017-08-15 07:34] LABS: CALC OSMOLALITY 274 mosm/kg (275-300); CALCIUM 8.6 mg/dL (8.5-10.1); CARBON DIOXIDE 26.3 mmol/L (21.0-32.0); CHLORIDE - SERUM 105 mmol/L (98-107); CREATININE - SERUM 0.7 mg/dL (0.6-1.3); GLUCOSE 89 mg/dL (74-106); POTASSIUM - SERUM 3.7 mmol/L (3.5-5.1); SODIUM 139 mmol/L (136-145); UREA NITROGEN 7 mg/dL (7-18); eGFR NON AFRICAN AMERICAN > 90 mL/min (90-120)
--- NOTE | 2017-08-15 07:36 | NUR ---
RESTING QUIETLY IN BED. CALL LIGHT IN REACH. BED IN LOWEST POSITION.
[2017-08-15 08:02] VITALS: BP 164/87
--- NOTE | 2017-08-15 13:28 | NUR ---
SITTING IN W/C IN ROOM. GETS UP TO USE BSC. FENT PATCH CHANGED ORDERED. HE REMAINS DEMANDING AND DISRESPECTFUL OF STAFF AT TIMES. HE WILL NOT PARTICIPATE IN THERAPY OR WORK WITH NURSES EXCEPT WHEN HE WANTS TO AND IS VERBAL ABOUT WHEN HE WANTS TO.
--- NOTE | 2017-08-15 17:07 | NUR ---
SITTING UP IN BED EATING SUPPER. STILL HAS TO VOID OFTEN. USES BSC. REFUSES TO USE URINAL.
--- NOTE | 2017-08-15 19:50 | NUR ---
RECIEVED STANDING UP AT BEDSIDE COMMODE WIPEING SELF. C/O TOILET PAPER NOT WORKING. HANDING HIM WIPES AND HE STATED "THAT WILL WORK BETTER". DENIES ANY PAIN AT THIS TIME.
[2017-08-15 20:50] VITALS: BP 148/69
--- NOTE | 2017-08-15 23:24 | NUR ---
RESTING IN BED WITH EYES OPEN. HOB ELEVATED. TOILET PAPER HANGING OUT OF TRASH CAN WITH BM ON IT EARLIER. EDUCATED PT TO INFECTION CONTROL. STATED ANOTHER STAFF MEMBER TOLD HIM TO DO THAT. EXPLAINED THAT HE NEEDED TO EXPOSE OF THE TISSUE IN THE COMMODE. CALL LIGHT IN REACH.
--- NOTE | 2017-08-16 02:42 | NUR ---
WHEN ANSWERING CALL LIGHT PT STANDING UP WITH PANTS DOWN AND WIPEING SELF. REQUESTING MORE TOILET PAPER AND MORE WIPES AND A PAIN PILL. 2 ROLLS OF TOILET PAPER GIVEN EARLIER. FILLS BEDSIDE COMMODE UP WITH TOILET PAPER AND WIPES. STATES HIP PAIN AT 9. MED GIVEN PER ORDERS. YELLS OUT OH SEVERAL TIMES WITH THIS NURSE IN THE ROOM. COMMODE EMPTIED AND RINSED OUTAND OUT BACK IN PLACE.
[2017-08-16 08:07] VITALS: BP 149/73
--- NOTE | 2017-08-16 09:17 | NUR ---
WORKING WITH THERAPY
--- NOTE | 2017-08-16 12:37 | NUR ---
SITTING UP IN BED EATING LUNCH. PAIN MEDS GIVEN ORDERED AND PT REQUEST. STILL C/O LEFT HIP DISCOMFORT. LLE HAS 2+ EDEMA AND FADING PURPLE BRUISE TO INSIDE OF LLE. HE CAN STAND BY SELF AND PERFORM PERSONAL CARE.
--- NOTE | 2017-08-16 16:05 | NUR ---
TEACHING DONE WITH PT ON USING WIPES, TISSES, TOILET PAPER, PAPER TOWELS. HE USES APPX 10 FEET OF TOILET PAPER PER WIPE, WIPES ONCE AND THROWS IT AWAY. HE USES 6-7 MOIST TOILET WIPES AT A TIME, WIPES ONCE THEN THROWS THEM AWAY. HE IS CONSUMING APPX 4 ROLES OF TOILET PAPER, 12 PACKAGES OF WIPES, AND 5-6 BOXES OF FACIAL TISSUE PER DAY. TEACHING DONE ON HOW ONE, JUST ONE MOIST WIPE CAN BE USED UP TO THREE TIMES WHEN FOLDED. ALSO ENCOURAGED PT TO WASH HIS HANDS AFTER EACH STOOL. HE STATES UNDERSTANDING.
--- NOTE | 2017-08-16 19:50 | NUR ---
CLEAN UP DIRTY TOILET PAPER THAT PT HAS BEEN THROWING IN FLOOR, AND EMPTY TRASH BASKET.
--- NOTE | 2017-08-17 00:10 | NUR ---
REST IN BED AND READ BOOK.
--- NOTE | 2017-08-17 00:15 | NUR ---
EMPTY BED SIDE COMMODE.
[2017-08-17 00:46] VITALS: BP 133/76
--- NOTE | 2017-08-17 01:10 | NUR ---
LAYING IN BED WITH EYES OPEN AND TV ON. CONTINUES TO USE ALMOST COMPLETE ROLL OF TOILET PAPER EACH TIME HE USES BEDSIDE COMMODE. REPOTED TO BE THROWING TOILET PAPER WITH FECES ON IT IN THE FLOOR BY HIS NURSE. CALL LIGHT IN REACH.
--- NOTE | 2017-08-17 02:54 | NUR ---
REST IN BED, CALL LIGHT IN REACH.
--- NOTE | 2017-08-17 09:58 | NUR ---
LAYING IN BED WATCHING TV. HAS C/O NONSTOP THIS MORNING ABOUT HIP PAIN, TOILET PAPER, MELTING ICE, MEDICATION, W/C PLACEMENT, TRASH CAN PLACEMENT, BSC PLACEMENT AND THE INCONVENIENCE OF ELIMINATION......ETC.
[2017-08-17 12:14] VITALS: BP 115/79
--- NOTE | 2017-08-17 20:12 | NUR ---
REST IN BED AND READ BOOK.
--- NOTE | 2017-08-18 00:05 | NUR ---
REST IN BED, CALL LIGHT IN REACH.
--- NOTE | 2017-08-18 01:31 | NUR ---
PT C/O PAIN IN HIP, A LEVEL OF 9, PAIN MED GIVEN.
[2017-08-18 01:39] VITALS: BP 143/74
--- NOTE | 2017-08-18 03:17 | NUR ---
UP IN BED WITH EYES OPEN AND TV ON. KEEPS LIGHTS ON IN ROOM. NO S/S OF DISTRESS OBSERVED. CALL LIGHT AND OVERBED TABLE IN REACH.
[2017-08-18 06:13] LABS: BASOPHILS 0.2 % (0-2); EOSINOPHILS 2.5 % (0-7); HEMATOCRIT 33.9 % (42.0-54.0); HEMOGLOBIN 11.1 g/dL (13.5-17.5); IMMATURE GRANULOCYTES 0.1 % (0-5); LYMPHOCYTES 22.9 % (15-50); MCHC 32.7 g/dL (31.0-37.0); MCV 97.7 fL (80.0-100.0); MONOCYTES 6.8 % (2-11); NEUTROPHILS 67.5 % (40-80); PLATELET COUNT 325 10x3/uL (130-400); RBC 3.47 10x6/uL (4.20-6.10); RDW 12.6 % (11.5-14.5); WBC 8.2 10x3/uL (4.8-10.8)
[2017-08-18 06:30] LABS: CALC OSMOLALITY 275 mosm/kg (275-300); CALCIUM 8.6 mg/dL (8.5-10.1); CHLORIDE - SERUM 103 mmol/L (98-107); CREATININE - SERUM 0.7 mg/dL (0.6-1.3); GLUCOSE 83 mg/dL (74-106); POTASSIUM - SERUM 3.7 mmol/L (3.5-5.1); SODIUM 140 mmol/L (136-145); UREA NITROGEN 7 mg/dL (7-18); eGFR NON AFRICAN AMERICAN > 90 mL/min (90-120)
[2017-08-18 07:30] VITALS: BP 134/75
--- NOTE | 2017-08-18 10:38 | NUR ---
SITTING IN BED WATCHING TV
--- NOTE | 2017-08-18 12:31 | NUR ---
SITTING UP IN W/C IN ROOM EATING LUNCH. PAIN PATCH CHANGED ORDERED.
[2017-08-18 13:04] LABS: APPEARANCE HAZY (CLEAR); COLOR YELLOW (YELLOW)
[2017-08-18 13:05] LABS: BACTERIA MODERATE /hpf (NONE SEEN); BILIRUBIN NEGATIVE (NEGATIVE); EPITHELIAL CELLS RARE /hpf (0-5); GLUCOSE NEGATIVE (NEGATIVE); KETONE NEGATIVE (NEGATIVE); NITRITE NEGATIVE (NEGATIVE); PROTEIN TRACE mg/dL (NEGATIVE); RED CELLS - URINE 0-5 /hpf (0-5); UROBILINOGEN NORMAL (NORMAL); WHITE CELLS - URINE >50 /hpf (0-5)
--- NOTE | 2017-08-18 18:38 | NUR ---
RESTING QUIETLY IN BED. CALL LIGHT IN REACH. BED IN LOWEST POSITION
--- NOTE | 2017-08-18 19:30 | NUR ---
PT IN WC IN [facility]. ALERT & ORIENTED. LEFT HIP X3 INCISIONS. NO O2. NO IV. PT TO USE BATHROOM DURING THE DAY AND BSC AT NIGHT. BED/CHAIR WAIER. BED IN LOWEST POSITION AND CALL LIGHT WITHIN REACH.
--- NOTE | 2017-08-18 20:05 | NUR ---
PT. IN BED WITH HOB UP FOR COMFORT AND HAS JUST COME FROM THE BR AFTER URINATING. ASSESSMENT COMPLETED. PT. REPORTS HIS URINE WAS TESTED TODAY. INFORMED PT. I DIDN'T KNOW THE RESULTS OF TEST. NO VOICED NEEDS AT THIS TIME AND PT. HAS HIS CALL LIGHT WITHIN REACH.
[2017-08-18 20:41] VITALS: BP 147/79
--- NOTE | 2017-08-18 23:09 | NUR ---
PT. IN BED WITH HOB UP FOR COMFORT AND IS WATCHING TV. NO VOICED NEEDS AT THIS TIME AND HIS CALL LIGHT IS WITHIN REACH. PT. HAS SIGNED BED ALARM WAIVER FORM AND USES HIS BSC AT NIGHT PRN.
--- NOTE | 2017-08-19 03:35 | NUR ---
PT. IN BED WITH HOB UP FOR COMFORT WITH EYES CLOSED AND RESP. EVEN. CALL LIGHT WITHIN REACH.
[2017-08-19 08:01] VITALS: BP 116/61
--- NOTE | 2017-08-19 14:20 | NUR ---
Nutrition Follow Up: Pt is eating 91% meal avg on a regular diet. +BM 08/18/17. Labs reviewed. Meds noted. Rec continue current diet. RD following.
[2017-08-19 21:45] VITALS: BP 140/77
--- NOTE | 2017-08-19 22:55 | NUR ---
IN BED, AWAKE. WATCHING TV. EARLIER TOLD PATIENT WE WILL PROVIDE HIM WITH A CURRENT MED LIST HE IS PLANNING ON CHANGING HIS MEDICARE SUPLEMENTARY INCUSRANCE WITH HIS AGENT TOMORROW AND NEEDS THE LIST TO CHOOSE A CARRIER.
--- NOTE | 2017-08-20 01:57 | NUR ---
ICE BAG LEAKED AND GOT BED SHEETS WET. CHANGED PT'S BEDDING. AND EMPTIED BSC.
--- NOTE | 2017-08-20 04:23 | NUR ---
PT IN BED WITH HOB UP FOR COMFORT. RESTING QUIETLY. REPSIRATIONS EVEN. BED IN LOWEST POSITION AND CALL LIGHT WITHIN REACH.
--- NOTE | 2017-08-20 08:00 | NUR ---
SHIFT ASSMT COMPLETED.LEFT HIP INCISIONS WITH RAVINDER INTACT.BREAKFAST GIVEN.CL IN REACH.
[2017-08-20 08:27] VITALS: BP 117/70
--- NOTE | 2017-08-20 12:00 | NUR ---
IN ROOM EATING LUNCH.CL IN REACH.
--- NOTE | 2017-08-20 15:17 | NUR ---
CARE TEAM MEETING: PATIENT PROGRESSING IN THERAPY AND WILL DISCHARGE HOME ON 08/22/17. WILL CONTINUE TO FOLLOW WITH PATIENT.
--- NOTE | 2017-08-20 16:00 | NUR ---
UP IN CHAIR.DENIES NEEDS.
--- NOTE | 2017-08-20 19:20 | NUR ---
PT IN WC. WATCHING TV. BED/CHAIR ALARM WAIVER. NO O2. NO IV. CALL LIGHT WIHTIN REACH.
[2017-08-20 20:12] VITALS: BP 128/64
--- NOTE | 2017-08-20 21:10 | NUR ---
UP IN THERAPY ROOM IN W/C LOOKING FOR SNACK. SAYS HE IS STILL HAVING PROBLEMS WITH PAIN IN HIT HIP.
--- NOTE | 2017-08-20 23:20 | NUR ---
PT IN BED WITH HOB UP FOR COMFORT. WATCHING TV. BSC AT BEDSIDE. BED IN LOWEST POSIITON AND CALL LIGHT WITHIN REACH.
--- NOTE | 2017-08-21 03:20 | NUR ---
PT IN BED WITH HOB UP FOR COMFORT. EYES CLOSED. REPSIRATIONS EVEN AND UNLABORED. BED IN LOWEST POSITION AND CALL LIGHT WITHIN REACH.
--- NOTE | 2017-08-21 05:04 | NUR ---
RAVINDER REMOVED FROM LEFT HIP AND STERI STRIPS APPLIED. PT TOLERATED PROCEDURE WELL. 10 RAVINDER REMOVED FROM THE TOP INCISION, 4 RAVINDER REMOVED FROM THE MIDDLE INCISION, AND 3 STPALES REMOVED FROM THE BOTTOM INCISION.
[2017-08-21 08:18] VITALS: BP 127/59
--- NOTE | 2017-08-21 09:48 | NUR ---
IN W/C IN THERAPY GYM
--- NOTE | 2017-08-21 12:37 | NUR ---
SITTING UP IN W/C IN ROOM EATING LUNCH. IS KEEPING LUE ELEVATED.
--- NOTE | 2017-08-21 17:32 | NUR ---
SITTING UP IN W/C IN ROOM. JUST FINISHED SUPPER. PAIN MEDS GIVEN ORDERED AND REQUESTED.
[2017-08-21 19:00] VITALS: BP 138/72
--- NOTE | 2017-08-21 20:00 | NUR ---
AWAKE, UP IN W/C AT BEDSIDE. REQUESTED PERCOCET FOR PAIN. RELAYED HIS REQUEST TO HIS PRIMARY NURSE.
--- NOTE | 2017-08-22 | NUR ---
PT STATED HIS ICE BAGGED LEAKED AND THE WATER GOT ALL OVER THE BED. CHANGED PT'S BEDDING. PT THEN STATED "I GUESS I NEED TO STOP SITTING ON TOP OF THEM."
--- NOTE | 2017-08-22 04:00 | NUR ---
PT IN BED WITH HOB UP FOR COMFORT. WATCHING TV. ICE PACK ON HIP. BED IN LOWEST POSITION AND CALL LIGHT WITHIN REACH.
[2017-08-22 06:14] LABS: HEMATOCRIT 31.3 % (42.0-54.0); HEMOGLOBIN 10.4 g/dL (13.5-17.5); LYMPHOCYTES 30.4 % (15-50); MCH 31.7 pg (26.0-34.0); MCHC 33.2 g/dL (31.0-37.0); MCV 95.4 fL (80.0-100.0); MEAN PLATELET VOLUME 8.6 fL (7.4-10.4); NEUTROPHILS 60.6 % (40-80); PLATELET COUNT 376 10x3/uL (130-400); RBC 3.28 10x6/uL (4.20-6.10); RDW 12.1 % (11.5-14.5); WBC 8.1 10x3/uL (4.8-10.8)
[2017-08-22 06:32] LABS: CALC OSMOLALITY 273 mosm/kg (275-300); CALCIUM 8.7 mg/dL (8.5-10.1); CARBON DIOXIDE 29.5 mmol/L (21.0-32.0); CHLORIDE - SERUM 102 mmol/L (98-107); CREATININE - SERUM 0.9 mg/dL (0.6-1.3); GLUCOSE 77 mg/dL (74-106); POTASSIUM - SERUM 4.2 mmol/L (3.5-5.1); SODIUM 138 mmol/L (136-145); UREA NITROGEN 10 mg/dL (7-18); eGFR NON AFRICAN AMERICAN 89 mL/min (90-120)
[2017-08-22 09:02] VITALS: BP 111/59
--- NOTE | 2017-08-22 09:42 | NUR ---
PATIENT DISCHARGING HOME WITH A FRIEND. [facility] WILL PROVIDE THERAPY AT HOME. [facility] WILL DELIVER A ROLLING WALKER AND BEDSIDE COMMODE. DR. CASTILLO 09/01/17 @ 9:00, DR. CAZARES 08/28/17 @ 1:30, DR. [facility] ( [facility] IN [place]) 09/03/17 @ 11:15. NURSE MARCELA HAS FAXED DISCHARGE MED REC AND OP REPORT TO DR. [facility]. PATIENT CHOICE FORM FOR HOME HEALTH AND [facility] FORM SIGNED, EXPLAINED AND FILED IN CHART.ORDERS HAVE BEEN FAXED WITH CONFORMATION RECIEVED
--- NOTE | 2017-10-08 13:18 | DS ---
PATIENT:LIBRADO MENARD :50 MEDICAL RECORD: [id number] DISCHARGE SUMMARY ADMISSION DATE: 08/10/17 DISCHARGE DATE: 08/22/17 This is a discharge dated 08/22/2017 from inpatient rehab. PRIMARY DIAGNOSIS: Decreased functional ability and ability to provide activities of daily living, status post left hip fracture with repair. SECONDARY DIAGNOSES: 1. Acute blood loss anemia. 2. Hypokalemia. 3. Malnutrition. 4. Degenerative joint disease. 5. Osteopenia. 6. Tobacco abuse. 7. Hypertension. 8. Hypothyroidism. HOSPITAL COURSE: Full H&P is located elsewhere on the chart on this 67-year-old male who was admitted to inpatient rehab for physical therapy and occupational therapy to improve gait, transfer skills, bed mobility, and activities of daily living to a modified independent level. He was evaluated by PT and OT and their plans of care were followed. He required custodial care for observation and assessment and medication administration as well as wound care and monitoring of surgical incision. Labs were monitored and electrolytes were managed by protocol. He remained on appropriate home medications. He was cooperative with therapies, progressing towards goals. Case management was involved for discharge planning. He was considered stable for discharge on 08/22/2017. DISCHARGE MEDICATIONS: As per discharge medication reconciliation. DISCHARGE DISPOSITION: The patient is discharged home. He will continue his current diet and level of activity and will have home health for continued PT and OT. He will receive a rolling walker and bedside commode from [facility] and will follow up with Dr. Curtis on September 01, Dr. Funk on August 28, and Dr. Higgins on September 03. At least 30 minutes was spent in this discharge activity. TRANSINT:[id number] Voice Confirmation ID: [id number] DOCUMENT ID: [id number] Dictated By: VANESA HOLLIS I have interviewed/examined the above patient and agree with these documented findings. DISCHARGE SUMMARY REPORT [id number] LIBRADO MENARD SCOTT MD at 1318 at 0939 CC: [id number] DICTATION DATE: 10/04/17 1159 LOAN COUNSELOR: 10/04/17 1442 DIS IN 08/22/17 [place] [address]
== END 2017-08-22 17:00 | disposition home health service (06) | DRG 536 ==
LOC: D.REHAB 17:40
PROVIDERS: ADMIT Emergency Medicine
DX: S72.142A Displaced intertrochanteric fracture of left femur, initial encounter for closed fracture (principal); D62 Acute posthemorrhagic anemia; E46 Unspecified protein-calorie malnutrition; F17.200 Nicotine dependence, unspecified, uncomplicated; M85.80 Other specified disorders of bone density and structure, unspecified site; M19.90 Unspecified osteoarthritis, unspecified site

== ENCOUNTER 2017-09-06 21:15 | Emergency (ER) | payer MEDICARE ==
[2017-08-11 09:12] VITALS: BMI 20.1
== END 2017-09-06 22:59 | disposition home or self-care (01) ==
LOC: D.ER 21:15
DX: L03.115 Cellulitis of right lower limb (principal); I10 Essential (primary) hypertension; E03.9 Hypothyroidism, unspecified

== ENCOUNTER → 2017-10-16 17:21 | Outpatient (CLI) | payer MEDICARE ==
[2017-08-11 09:12] VITALS: BMI 20.1
[2017-10-16 21:28] LABS: BASOPHILS 0.6 % (0-2); EOSINOPHILS 2.1 % (0-7); HEMATOCRIT 42.6 % (42.0-54.0); HEMOGLOBIN 14.2 g/dL (13.5-17.5); IMMATURE GRANULOCYTES 0.1 % (0-5); LYMPHOCYTES 40.9 % (15-50); MCH 30.4 pg (26.0-34.0); MCHC 33.3 g/dL (31.0-37.0); MCV 91.2 fL (80.0-100.0); MONOCYTES 6.9 % (2-11); NEUTROPHILS 49.4 % (40-80); RBC 4.67 10x6/uL (4.20-6.10); RDW 13.7 % (11.5-14.5); WBC 7.2 10x3/uL (4.8-10.8)
[2017-10-16 21:31] LABS: PLATELET COUNT 207 10x3/uL (130-400)
[2017-10-16 21:59] LABS: ALBUMIN 3.7 g/dL (3.4-5.0); ALKALINE PHOSPHATASE 113 U/L (46-116); ALT (SGPT) 13 U/L (10-68); BILIRUBIN - TOTAL 0.25 mg/dL (0.2-1.3); CALC OSMOLALITY 254 mosm/kg (275-300); CALCIUM 8.8 mg/dL (8.5-10.1); CARBON DIOXIDE 27.9 mmol/L (21.0-32.0); CHLORIDE - SERUM 93 mmol/L (98-107); CREATININE - SERUM 0.7 mg/dL (0.6-1.3); PROTEIN - SERUM 6.7 g/dL (6.4-8.2); SODIUM 129 mmol/L (136-145); T4 THYROXIN - FREE 1.45 ng/dL (0.76-1.46); THYROID STIMULATING HORMONE 4.79 uIU/mL (0.36-3.74); UREA NITROGEN 6 mg/dL (7-18); eGFR NON AFRICAN AMERICAN > 90 mL/min (90-120)
[2017-10-16 22:02] LABS: GLUCOSE 60 mg/dL (74-106)
[2017-10-19 20:07] LABS: VITAMIN D 25 HYDROXY 96.1 ng/mL (30.0-100.0)
[2017-10-21 03:09] LABS: TESTOSTERONE - FREE 3.2 pg/mL (6.6-18.1); TESTOSTERONE - SERUM 306 ng/dL (264-916)
== END | disposition home or self-care (01) ==
LOC: D.LABREF 17:21
PROVIDERS: Family Medicine
DX: E29.1 Testicular hypofunction (principal); E03.9 Hypothyroidism, unspecified; I10 Essential (primary) hypertension